=== PATIENT | female | born 1985 | race Asian ===

== ENCOUNTER 2023-01-30 19:58 | Emergency (ER) | payer MEDICAID ==
[~2023-01-30] VITALS: Ht 165.1 cm; Wt 81.8 kg
[~2023-01-30 19:58] MED LIST: VICODIN
[2023-01-30 20:07] VITALS: BP 108/76
[2023-01-30 20:21] LABS: COVID AG,FIA SOURCE NASAL SWAB
[2023-01-30 20:36] LABS: INFLUENZA TYPE A NEGATIVE FOR TYPE A (NEGATIVE); INFLUENZA TYPE B NEGATIVE FOR TYPE B (NEGATIVE)
== END 2023-01-30 21:15 | disposition left against medical advice (07) ==
LOC: EMS 19:59
DX: Z53.21 Procedure and treatment not carried out due to patient leaving prior to being seen by health care provider (principal); Z20.822 Contact with and (suspected) exposure to COVID-19
CPT/HCPCS: 87804; 99281; Z7502

== ENCOUNTER 2023-07-26 02:06 | Emergency (ER) | payer MEDICAID ==
[~2023-07-26] VITALS: Ht 157.5 cm; Wt 77.3 kg
[2023-07-26] MEDS ORDERED: LORazepam 1 MG TABLET PO ONE (02:45)
[2023-07-26 03:35] LABS: ALCOHOL, BLOOD (SERUM) < 3 mg/dL (0-10); TROPONIN I-HIGH SENSITIVITY Less Than 4 ng/L (<51)
[2023-07-26 03:52] LABS: CREATINE KINASE, TOTAL ONLY 173 U/L (26-192)
[2023-07-26 05:00] VITALS: BP 110/69; PULSE 89; RESP 14; TEMP 98.2
[2023-07-26 05:29] LABS: APPEARANCE,URINE CLEAR (CLEAR); BILIRUBIN,URINE NEGATIVE (NEGATIVE); COLOR,URINE COLORLESS (YELLOW); GLUCOSE, URINE (UA) NEGATIVE (NEGATIVE); KETONES,URINE NEGATIVE (NEGATIVE); LEUKOCYTE ESTERASE ,URINE NEGATIVE (NEGATIVE); NITRATE,URINE NEGATIVE (NEGATIVE); OCCULT BLOOD,URINE NEGATIVE (NEGATIVE); PROTEIN,URINE NEGATIVE (NEGATIVE); SPECIFIC GRAVITIY, URINE 1.007 (1.003-1.030); UROBILINOGEN,URINE <=1.0 mg/dL (<=1.0)
[2023-07-26 05:34] LABS: ALCOHOL, URINE DRUG SCREEN NEGATIVE (NEGATIVE); AMPHET/METH SCREEN,URINE POSITIVE (NEGATIVE); BARBITURATE SCREEN, URINE NEGATIVE (NEGATIVE); BENZODIAZEPINES SCREEN,URINE NEGATIVE (NEGATIVE); CANNABINOID SCREEN,URINE POSITIVE (NEGATIVE); COCAINE SCREEN,URINE NEGATIVE (NEGATIVE); METHADONE SCREEN, URINE NEGATIVE (NEGATIVE); OPIATE SCREEN,URINE NEGATIVE (NEGATIVE); PHENCYCLIDINE SCREEN,URINE NEGATIVE (NEGATIVE)
== END 2023-07-26 05:38 | disposition home or self-care (01) ==
LOC: EMS 02:06
DX: F15.90 Other stimulant use, unspecified, uncomplicated (principal); R20.2 Paresthesia of skin; Z20.822 Contact with and (suspected) exposure to COVID-19
CPT/HCPCS: 99284; 81003; 82550; 84484; 84703; 36415; 93005; 80307; G0480

== ENCOUNTER 2024-08-08 22:11 | Emergency (ER) | payer MEDICAID | END 2024-08-08 23:00 | disposition left against medical advice (07) | LOC: EMS 22:11 | DX: R05.9 Cough, unspecified (principal); Z53.21 Procedure and treatment not carried out due to patient leaving prior to being seen by health care provider ==